=== PATIENT | male | born 1975 | race Two or more races ===

== ENCOUNTER 2023-02-22 09:01 | Day surgery (SDC) | payer OTHER ==
[~2023-02-22] VITALS: Ht 175.3 cm; Wt 86.2 kg
[2023-02-22] MEDS ORDERED: fentaNYL citrate 0.05 MG/ML VIAL ONE (11:02)
[2023-02-22] MEDS ORDERED: MIDAZOLAM 2 MG/2 ML VIAL ONE (11:02)
[2023-02-22] MEDS ORDERED: LIDOCAINE 2% 100 MG/5 ML UJET TP ONE ×2 (11:03→15:45)
[2023-02-22] MEDS ORDERED: fentaNYL citrate 0.05 MG/ML VIAL IVP ONE (15:45)
[2023-02-22] MEDS ORDERED: MIDAZOLAM 2 MG/2 ML VIAL IVP ONE (15:45)
== END 2023-02-22 12:50 | disposition home or self-care (01) ==
LOC: MDS 09:01 → MMU 09:04 → MDS 12:50
PROVIDERS: ATTEND Internal Medicine Gastroenterology
DX: R14.0 Abdominal distension (gaseous) (principal); K62.1 Rectal polyp; K59.00 Constipation, unspecified; F17.210 Nicotine dependence, cigarettes, uncomplicated; Z90.89 Acquired absence of other organs
CPT/HCPCS: 36415; 43239; 45380; 86677; J2250; J3010